=== PATIENT | male | born 1980 | race Hispanic/Latino ===

== ENCOUNTER 2019-12-24 09:28 | Inpatient (IN) | payer OTHER ==
[~2019-12-24] VITALS: Ht 172.7 cm; Wt 125.0 kg
[~2019-12-24 09:28] MED LIST: AEC81 PO; ATOR40TA69 PO; FISH1CAP50 PO; GEMF600T5 PO; INSNOV IVP; INSU100V12 SQ; LISI40TA4 PO; METF-445 PO; NIAC500T22 PO
[2019-12-24 10:22] LABS: APPEARANCE,URINE Clear (CLEAR); BILIRUBIN,URINE Negative (NEGATIVE); COLOR,URINE Yellow (YELLOW); GLUCOSE, URINE (UA) >=1000 mg/dL (NEGATIVE); KETONES,URINE Negative (NEGATIVE); LEUKOCYTE ESTERASE ,URINE Negative (NEGATIVE); NITRATE,URINE Negative (NEGATIVE); OCCULT BLOOD,URINE Moderate (NEGATIVE); PH,URINE 5.5 (5.0-8.0); PROTEIN,URINE >=1000 mg/dL (NEGATIVE); UROBILINOGEN,URINE 0.2 mg/dL (0.2-1.0)
[2019-12-24 10:56] LABS: BASOPHILS % (AUTO) 0.6 % (0.0-5.0); EOSINOPHILS % (AUTO) 2.1 % (0.0-8.0); LYMPHOCYTES % (AUTO) 24.2 % (21.0-51.0); MEAN CORPUSCULAR HEMOGLOBIN 27.2 pg (27.0-33.0); MEAN CORPUSCULAR HGB CONC 33.4 g/dL (32.0-36.0); MEAN CORPUSCULAR VOLUME 81.4 fL (79-99); MONOCYTES % (AUTO) 5.6 % (3.0-13.0); PLATELET COUNT (AUTO) 176 K/uL (130-400); RED BLOOD CELL COUNT(AUTO) 4.67 MIL/uL (4.50-6.20); RED CELL DISTRIBUTION WIDTH 12.6 % (11.0-15.5); WHITE BLOOD COUNT (AUTO) 6.3 K/uL (4.8-10.8)
[2019-12-24 11:07] LABS: POTASSIUM 4.1 mmol/L (3.5-5.1)
[2019-12-24 11:19] LABS: ALBUMIN 1.6 g/dL (3.5-5.0); BILIRUBIN,TOTAL 0.2 mg/dL (0.2-1.0); CREATININE 1.5 mg/dL (0.5-1.5); TOTAL PROTEIN, SERUM 5.8 g/dL (6.0-8.3)
[2019-12-24 11:42] LABS: B-TYPE NATRIURETIC PEPTIDE 83 pg/mL (0-100)
[2019-12-24 11:50] LABS: INR 0.89 (0.85-1.15); PARTIAL THROMBOPLASTIN TIME 26.8 SEC (26.3-35.5); PROTHROMBIN TIME 9.4 SEC (9.6-11.6)
[2019-12-24 12:01] LABS: BACTERIA,URINE Rare /HPF (None Seen); WBC,URINE 0-1 /HPF (0-1); YEAST,URINE BUDDING Few /HPF (None Seen)
[2019-12-24 12:02] LABS: SQUAMOUS EPITHELIAL CELL,UR Rare /HPF (0-2)
[2019-12-24] MEDS ORDERED: INSULIN HUMULIN R 100 UNIT/ML 3ML ONE ×3 (12:21→20:22)
[2019-12-24] MEDS ORDERED: GLUCAGON 1MG KIT 1 MG ML IM PRN (14:45)
[2019-12-24] MEDS ORDERED: ACETAMINOPHEN 325 MG TAB PO PRN (14:45)
[2019-12-24] MEDS: CEFTRIAXONE SODIUM 1 GM IV SCH (14:45)
[2019-12-24] MEDS ORDERED: DEXTROSE 50%-WATER 50 ML DISP.SYRIN IV PRN (14:45)
[2019-12-24] MEDS ORDERED: ONDANSETRON HCL 4 MG/2 ML VIAL IV PRN (14:45)
[2019-12-24] MEDS ORDERED: LACTULOSE 20 GM/30 ML UDCUP PO PRN (14:45)
[2019-12-24 15:20] LABS: HEMOGLOBIN A1C 13.3 % (4.0-6.0)
[2019-12-24] MEDS ORDERED: CEFTRIAXONE SODIUM 1 GM ONE (16:40)
[2019-12-24] MEDS ORDERED: SODIUM CHLORIDE 0.9% 1000ML 1,000 ML IV ONE (16:40)
[2019-12-24] MEDS ORDERED: SODIUM CHLORIDE 0.9% 50 ML IV ONE (16:40)
[2019-12-24] MEDS ORDERED: HYDRALAZINE HCL 20 MG/ML VIAL ONE (17:16)
[2019-12-24] MEDS ORDERED: FAMOTIDINE 20MG TAB 20 MG TAB ONE (20:21)
[2019-12-24] MEDS ORDERED: ACETAMINOPHEN 325 MG TAB ONE (20:22)
[2019-12-24 21:06] LABS: BASOPHILS % (AUTO) 0.5 % (0.0-5.0); HEMATOCRIT 38.7 % (42-54); LYMPHOCYTES % (AUTO) 22.5 % (21.0-51.0); MEAN CORPUSCULAR HEMOGLOBIN 27.4 pg (27.0-33.0); MEAN CORPUSCULAR HGB CONC 33.3 g/dL (32.0-36.0); MEAN CORPUSCULAR VOLUME 82.2 fL (79-99); MONOCYTES % (AUTO) 5.3 % (3.0-13.0); NEUTROPHILS % (AUTO) 69.2 % (40.0-77.0); PLATELET COUNT (AUTO) 182 K/uL (130-400); RED BLOOD CELL COUNT(AUTO) 4.71 MIL/uL (4.50-6.20); RED CELL DISTRIBUTION WIDTH 12.6 % (11.0-15.5); WHITE BLOOD COUNT (AUTO) 6.6 K/uL (4.8-10.8)
[2019-12-24 21:24] LABS: ALANINE AMINOTRANSFERASE 21 U/L (12-78); ALBUMIN 1.6 g/dL (3.5-5.0); ASPARTATE AMINOTRANSFERASE 19 U/L (10-37); BILIRUBIN,TOTAL 0.3 mg/dL (0.2-1.0); TOTAL PROTEIN, SERUM 5.7 g/dL (6.0-8.3)
[2019-12-24 21:42] LABS: BILIRUBIN,DIRECT < 0.1 mg/dL (0.0-0.3)
[2019-12-25] MEDS ORDERED: ACETAMINOPHEN 325 MG TAB ONE (01:02)
[2019-12-25 05:55] LABS: CREATININE 1.5 mg/dL (0.5-1.5); POTASSIUM 4.3 mmol/L (3.5-5.1)
[2019-12-25] MEDS: METOPROLOL TARTRATE 25 MG TAB PO SCH ×2 (09:00→21:49)
[2019-12-25] MEDS: FAMOTIDINE/PF 20 MG/2 ML VIAL IV SCH ×2 (09:00→21:49)
[2019-12-25] MEDS: ENOXAPARIN SODIUM 30 MG/0.3 ML SQ SCH (09:00)
[2019-12-25] MEDS: PREGABALIN 25 MG CAP PO SCH ×2 (09:00→21:49)
[2019-12-25] MEDS: LISINOPRIL 10 MG TABLET PO SCH (09:00)
[2019-12-25] MEDS ORDERED: METOPROLOL TARTRATE 25 MG TAB ONE (09:53)
[2019-12-25] MEDS ORDERED: LISINOPRIL 5 MG TABLET ONE (09:53)
[2019-12-25] MEDS ORDERED: FAMOTIDINE 20MG TAB 20 MG TAB ONE (09:53)
--- NOTE | 2019-12-25 11:26 | NUR ---
INITIAL Patient lives with mother, Geraldine Branch, [phone]. No home services or DME. 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 He is able to complete ADL's independently and drives. PCP is Dr. Randy Oconnor at [facility]. Pharmacy is [facility]. DCP is home. Patient has no insurance or benefits. He is a [place] citizen and is presently employed. Patient was provided with community resources for post hospitalization follow up. Patient was also provided with Good RX card for prescriptions and educated on [employer] $4 medication program and [employer] $5 medication program. Patient is being assisted by [employer] for financial matters Addendum: 12/25/19 at 1130 by BRETT PEREZ Amended: Links added.
[2019-12-25] MEDS: INSULIN HUMULIN R 100 UNIT/ML 3ML SQ SCH ×3 (11:30→21:42)
[2019-12-25 12:42] VITALS: BP 162/94
--- NOTE | 2019-12-25 13:20 | NUR ---
DR. BIJAL MOON MD PAGED REGARDING CONSULT, AWAITING CALLBACK.
[2019-12-25] MEDS: ACETAMINOPHEN 325 MG TAB PO PRN (13:42)
[2019-12-25] MEDS: MORPHINE SULFATE 2 MG/ML 1ML SYG IVP PRN (14:59)
[2019-12-25 16:00] VITALS: BP_SYST 169; BP_SYST 171; BP_DIAS 101; BP_DIAS 102
[2019-12-25] MEDS: HYDRALAZINE HCL 20 MG/ML VIAL IV PRN (17:31)
[2019-12-25] MEDS: CEFTRIAXONE SODIUM 1 GM IV SCH (17:31)
[2019-12-25] MEDS: SODIUM CHLORIDE 0.9% 1000ML 1,000 ML IV SCH ×3 (17:48→21:49)
[2019-12-25 19:00] VITALS: BP 165/113
[2019-12-25] MEDS ORDERED: FLU VACC QS2019-20 36MOS UP/PF 60 MCG/0.5 ML ML IM ONE (21:15)
[2019-12-25] MEDS: INSULIN GLARGINE 100 UNITS/ML 10 ML VIAL SQ SCH (21:42)
[2019-12-25 23:00] VITALS: BP 117/65
[2019-12-26 03:00] VITALS: BP 133/78
[2019-12-26 05:59] LABS: BASOPHILS % (AUTO) 0.6 % (0.0-5.0); EOSINOPHILS % (AUTO) 2.3 % (0.0-8.0); HEMATOCRIT 34.6 % (42-54); MEAN CORPUSCULAR HEMOGLOBIN 27.6 pg (27.0-33.0); MEAN CORPUSCULAR HGB CONC 32.9 g/dL (32.0-36.0); MEAN CORPUSCULAR VOLUME 83.8 fL (79-99); MONOCYTES % (AUTO) 8.2 % (3.0-13.0); NEUTROPHILS % (AUTO) 63.5 % (40.0-77.0); PLATELET COUNT (AUTO) 181 K/uL (130-400); RED BLOOD CELL COUNT(AUTO) 4.13 MIL/uL (4.50-6.20); RED CELL DISTRIBUTION WIDTH 13.2 % (11.0-15.5); WHITE BLOOD COUNT (AUTO) 5.1 K/uL (4.8-10.8)
[2019-12-26 06:14] LABS: ALBUMIN 1.3 g/dL (3.5-5.0); BILIRUBIN,TOTAL 0.1 mg/dL (0.2-1.0); CREATININE 1.6 mg/dL (0.5-1.5); POTASSIUM 3.8 mmol/L (3.5-5.1); TOTAL PROTEIN, SERUM 4.7 g/dL (6.0-8.3)
[2019-12-26] MEDS: INSULIN HUMULIN R 100 UNIT/ML 3ML SQ SCH ×4 (06:38→22:18)
[2019-12-26] MEDS: INSULIN GLARGINE 100 UNITS/ML 10 ML VIAL SQ SCH ×2 (07:30→22:18)
[2019-12-26] MEDS: SODIUM CHLORIDE 0.9% 1000ML 1,000 ML IV SCH ×2 (07:46→22:14)
[2019-12-26 08:00] VITALS: BP 153/94
[2019-12-26] MEDS: PREGABALIN 25 MG CAP PO SCH ×2 (10:14→22:15)
[2019-12-26] MEDS: FAMOTIDINE/PF 20 MG/2 ML VIAL IV SCH ×2 (10:15→22:15)
[2019-12-26] MEDS: LISINOPRIL 10 MG TABLET PO SCH (10:15)
[2019-12-26] MEDS: METOPROLOL TARTRATE 25 MG TAB PO SCH ×2 (10:15→22:15)
[2019-12-26] MEDS: ENOXAPARIN SODIUM 30 MG/0.3 ML SQ SCH (10:16)
[2019-12-26 11:33] VITALS: BP 162/96
[2019-12-26 16:00] VITALS: BP 149/93
[2019-12-26] MEDS: CEFTRIAXONE SODIUM 1 GM IV SCH (16:32)
[2019-12-26 19:00] VITALS: BP 143/100
[2019-12-26 23:00] VITALS: BP 151/97
[2019-12-27] VITALS (7 sets, daily range): BP systolic 130–165; BP diastolic 79–106
[2019-12-27] MEDS: SODIUM CHLORIDE 0.9% 1000ML 1,000 ML IV SCH ×3 (02:32→22:12)
[2019-12-27] MEDS: ACETAMINOPHEN 325 MG TAB PO PRN (03:23)
[2019-12-27] MEDS: INSULIN HUMULIN R 100 UNIT/ML 3ML SQ SCH ×4 (06:15→21:00)
[2019-12-27] MEDS: INSULIN GLARGINE 100 UNITS/ML 10 ML VIAL SQ SCH (06:19)
[2019-12-27 06:50] LABS: BASOPHILS % (AUTO) 0.5 % (0.0-5.0); EOSINOPHILS % (AUTO) 3.4 % (0.0-8.0); HEMATOCRIT 35.7 % (42-54); LYMPHOCYTES % (AUTO) 34.9 % (21.0-51.0); MEAN CORPUSCULAR HEMOGLOBIN 27.5 pg (27.0-33.0); MEAN CORPUSCULAR HGB CONC 32.2 g/dL (32.0-36.0); MEAN CORPUSCULAR VOLUME 85.4 fL (79-99); MONOCYTES % (AUTO) 8.7 % (3.0-13.0); NEUTROPHILS % (AUTO) 52.3 % (40.0-77.0); PLATELET COUNT (AUTO) 165 K/uL (130-400); RED BLOOD CELL COUNT(AUTO) 4.18 MIL/uL (4.50-6.20); RED CELL DISTRIBUTION WIDTH 13.2 % (11.0-15.5); WHITE BLOOD COUNT (AUTO) 4.4 K/uL (4.8-10.8)
[2019-12-27 07:05] LABS: ALBUMIN 1.4 g/dL (3.5-5.0); BILIRUBIN,TOTAL 0.1 mg/dL (0.2-1.0); CREATININE 1.6 mg/dL (0.5-1.5); POTASSIUM 4.2 mmol/L (3.5-5.1); TOTAL PROTEIN, SERUM 4.9 g/dL (6.0-8.3)
[2019-12-27] MEDS: METOPROLOL TARTRATE 25 MG TAB PO SCH ×2 (09:39→22:12)
[2019-12-27] MEDS: FAMOTIDINE/PF 20 MG/2 ML VIAL IV SCH ×2 (09:40→22:12)
[2019-12-27] MEDS: LISINOPRIL 10 MG TABLET PO SCH (09:40)
[2019-12-27] MEDS: PREGABALIN 25 MG CAP PO SCH ×2 (09:40→22:12)
[2019-12-27] MEDS: ENOXAPARIN SODIUM 30 MG/0.3 ML SQ SCH (09:41)
[2019-12-27] MEDS: HYDRALAZINE HCL 20 MG/ML VIAL IV PRN ×2 (12:19→23:13)
[2019-12-27] MEDS: MORPHINE SULFATE 2 MG/ML 1ML SYG IVP PRN ×2 (12:58→22:15)
[2019-12-27] MEDS ORDERED: INSULIN HUMULIN 70/30 100 UNIT/ML 3ML SQ SCH (17:00)
[2019-12-27] MEDS: CEFTRIAXONE SODIUM 1 GM IV SCH (17:51)
[2019-12-28 03:00] VITALS: BP 122/63
[2019-12-28] MEDS: INSULIN HUMULIN R 100 UNIT/ML 3ML SQ SCH ×3 (06:36→16:30)
[2019-12-28 07:06] LABS: BASOPHILS % (AUTO) 0.6 % (0.0-5.0); EOSINOPHILS % (AUTO) 1.9 % (0.0-8.0); HEMATOCRIT 39.5 % (42-54); LYMPHOCYTES % (AUTO) 26.3 % (21.0-51.0); MEAN CORPUSCULAR HEMOGLOBIN 27.3 pg (27.0-33.0); MEAN CORPUSCULAR HGB CONC 31.9 g/dL (32.0-36.0); MEAN CORPUSCULAR VOLUME 85.7 fL (79-99); MONOCYTES % (AUTO) 5.5 % (3.0-13.0); NEUTROPHILS % (AUTO) 65.4 % (40.0-77.0); PLATELET COUNT (AUTO) 211 K/uL (130-400); RED BLOOD CELL COUNT(AUTO) 4.61 MIL/uL (4.50-6.20); WHITE BLOOD COUNT (AUTO) 6.4 K/uL (4.8-10.8)
[2019-12-28 07:22] LABS: ALBUMIN 1.5 g/dL (3.5-5.0); BILIRUBIN,TOTAL 0.1 mg/dL (0.2-1.0); CREATININE 1.5 mg/dL (0.5-1.5); POTASSIUM 4.2 mmol/L (3.5-5.1); TOTAL PROTEIN, SERUM 5.4 g/dL (6.0-8.3)
[2019-12-28 07:30] VITALS: BP 171/97
[2019-12-28] MEDS ORDERED: INSULIN HUMULIN 70/30 100 UNIT/ML 3ML SQ SCH (07:30)
[2019-12-28] MEDS ORDERED: LISINOPRIL 20 MG TABLET PO SCH (09:00)
[2019-12-28] MEDS: SODIUM CHLORIDE 0.9% 1000ML 1,000 ML IV SCH (09:03)
[2019-12-28] MEDS: METOPROLOL TARTRATE 25 MG TAB PO SCH (09:04)
[2019-12-28] MEDS: FAMOTIDINE/PF 20 MG/2 ML VIAL IV SCH (09:05)
[2019-12-28] MEDS: PREGABALIN 25 MG CAP PO SCH (09:05)
[2019-12-28] MEDS: ENOXAPARIN SODIUM 30 MG/0.3 ML SQ SCH (09:07)
[2019-12-28] MEDS ORDERED: INSU10VI3 SQ ×2 (10:08)
[2019-12-28 11:12] VITALS: BP 143/96
[2019-12-28] MEDS: CEFTRIAXONE SODIUM 1 GM IV SCH (14:23)
[2019-12-28] MEDS ORDERED: LISI20TA PO (15:51)
[2019-12-28] MEDS ORDERED: PREG50 PO (15:51)
[2019-12-28] MEDS ORDERED: METO25TA6 PO (15:51)
--- NOTE | 2019-12-28 16:06 | NUR ---
NUTRITION EDUCATION COMPLETED LABS REVIEWED (A1C 13.3, TG 568, CHOL 308, LDL 110). RD PROVIDED DIABETES, HEART HEALTHY AND MEDITERRANEAN DIET AND NUTRITION EDUCATION. ALL QUESTIONS WERE ANSWERED AND PT VERBALIZED UNDERSTANDING. LAB VALUE TARGET GOALS WERE ESTABLISHED WITH PT. EDUCATION MATERIALS WERE PROVIDED IN [place]. Addendum: 12/28/19 at [address] Amended: Links added.
[2019-12-28 16:21] VITALS: BP 152/99
--- NOTE | 2019-12-28 19:00 | NUR ---
Discharge instructions provided with pt and parents in room. Emphasis on dx uncontrolled htn, dm2 with neuropathy, s/s to monitor for, when to seek emergency care vs dial 911. Pt is to follow up with Dr. Oconnor (PCP) in 3-5 days, and Dr. Royal (Podiatry) in 1 week. Staff unable to schedule appts as office are currently closed, so pt understands he must call to make appts in am. Written rx for lyrica, novolog 70/30, metoprolol, prinivil, given to pt. Discussed purpose, route, frequency of treatment, as well as side effects and adverse effects, bridgette. hypoglycemia and hypotension. Pt encouraged to monitor glucose and blood pressures and keep a record to report to md on follow up visits. PIV removed from rt wrist, dressed with sterile 2x2 and band aid after hemostasis achieved. Pt escorted to [facility] for transport home via private vehicle. Pt in stable condition at time of discharge.
== END 2019-12-28 19:15 | disposition home or self-care (01) | DRG 556 ==
LOC: EDH 09:28 → EDHIP 14:32 → 3DH 12-25 11:41
PROVIDERS: ADMIT Family Medicine; ATTEND Family Medicine
DX: M79.89 Other specified soft tissue disorders (principal); M62.82 Rhabdomyolysis; E44.0 Moderate protein-calorie malnutrition; N39.0 Urinary tract infection, site not specified; Z68.41 Body mass index [BMI] 40.0-44.9, adult; E66.01 Morbid (severe) obesity due to excess calories; E11.40 Type 2 diabetes mellitus with diabetic neuropathy, unspecified; E78.5 Hyperlipidemia, unspecified; Z91.14 Patient's other noncompliance with medication regimen; Z23 Encounter for immunization; Z79.4 Long term (current) use of insulin; I10 Essential (primary) hypertension
CPT/HCPCS: 36415; 71046; 73620; 73630; 76705; 80048; 80053; 80061; 80076; 81001; 82550; 82948; 83036; 83880; 84484; 85025; 85610; 85730; 87088; 93005; 93925; 93970; G0378; J0360; J0696; J1650; J1815; J3490; J7030; Q2035

== ENCOUNTER 2020-01-05 17:28 | Inpatient (IN) | payer OTHER ==
[~2020-01-05] VITALS: Ht 172.7 cm; Wt 114.1 kg
[~2020-01-05 17:28] MED LIST changes: -AEC81 PO; -ATOR40TA69 PO; -FISH1CAP50 PO; -GEMF600T5 PO; -INSNOV IVP; -INSU100V12 SQ; +INSU10VI3 SQ; +LISI20TA PO; -LISI40TA4 PO; -METF-445 PO; +METO25TA6 PO; -NIAC500T22 PO; +PREG50 PO
[2020-01-05 18:26] LABS: BASOPHILS % (AUTO) 0.4 % (0.0-5.0); EOSINOPHILS % (AUTO) 3.6 % (0.0-8.0); HEMATOCRIT 29.9 % (42-54); LYMPHOCYTES % (AUTO) 19.3 % (21.0-51.0); MEAN CORPUSCULAR HEMOGLOBIN 27.7 pg (27.0-33.0); MEAN CORPUSCULAR HGB CONC 31.4 g/dL (32.0-36.0); MEAN CORPUSCULAR VOLUME 88.2 fL (79-99); MONOCYTES % (AUTO) 7.5 % (3.0-13.0); NEUTROPHILS % (AUTO) 68.9 % (40.0-77.0); PLATELET COUNT (AUTO) 203 K/uL (130-400); RED BLOOD CELL COUNT(AUTO) 3.39 MIL/uL (4.50-6.20); RED CELL DISTRIBUTION WIDTH 12.9 % (11.0-15.5); WHITE BLOOD COUNT (AUTO) 7.2 K/uL (4.8-10.8)
[2020-01-05] MEDS ORDERED: FUROSEMIDE 10 MG/ML 4ML VIAL ONE (18:35)
[2020-01-05] MEDS ORDERED: CEFTRIAXONE SODIUM 2 GM VIAL ONE (18:35)
[2020-01-05 18:38] LABS: INR 0.95 (0.85-1.15)
[2020-01-05 18:49] LABS: CARBON DIOXIDE 24 mmol/L (21-32); CHLORIDE 108 mmol/L (101-111); GLOMERULAR FILTR. RATE CALC 40 mL/min (>60); GLUCOSE,RANDOM 194 mg/dL (70-105); POTASSIUM 4.9 mmol/L (3.5-5.1); SODIUM SERUM 139 mmol/L (136-145); UREA NITROGEN, BLOOD 26 mg/dL (7-18)
[2020-01-05 18:53] LABS: ALANINE AMINOTRANSFERASE 23 U/L (12-78); ALBUMIN 1.6 g/dL (3.5-5.0); ASPARTATE AMINOTRANSFERASE 18 U/L (10-37); BILIRUBIN,DIRECT < 0.1 mg/dL (0.0-0.3); BILIRUBIN,TOTAL 0.2 mg/dL (0.2-1.0); CREATINE KINASE, TOTAL 381 U/L (21-232); LIPASE 70 U/L (114-286); TOTAL PROTEIN, SERUM 5.6 g/dL (6.0-8.3)
[2020-01-05 19:00] LABS: APPEARANCE,URINE Cloudy (CLEAR); BILIRUBIN,URINE Negative (NEGATIVE); COLOR,URINE Yellow (YELLOW); GLUCOSE, URINE (UA) TRACE mg/dL (NEGATIVE); KETONES,URINE Negative (NEGATIVE); LEUKOCYTE ESTERASE ,URINE Negative (NEGATIVE); NITRATE,URINE Negative (NEGATIVE); OCCULT BLOOD,URINE Moderate (NEGATIVE); PROTEIN,URINE >=1000 mg/dL (NEGATIVE); UROBILINOGEN,URINE 0.2 mg/dL (0.2-1.0)
[2020-01-05 19:24] LABS: AMORPHOUS SEDIMENT,UR Few /LPF (None Seen); BACTERIA,URINE Few /HPF (None Seen); MUCUS,URINE Rare LPF (None Seen); RBC,URINE 0-1 /HPF (0-1); SQUAMOUS EPITHELIAL CELL,UR None Seen /HPF (0-2); WBC,URINE 0-1 /HPF (0-1)
[2020-01-05] MEDS ORDERED: VANCOMYCIN 1GM+NS 250ML 500 ML IV ONE (19:38)
[2020-01-05 19:50] LABS: B-TYPE NATRIURETIC PEPTIDE 219 pg/mL (0-100)
[2020-01-05] MEDS ORDERED: DEXTROSE 50%-WATER 50 ML DISP.SYRIN IV PRN (20:45)
[2020-01-05] MEDS ORDERED: GLUCAGON 1MG KIT 1 MG ML IM PRN (20:45)
[2020-01-05] MEDS ORDERED: METHYLPREDNISOLONE SOD SUCC 40MG/ML 1ML IVP SCH (21:00)
[2020-01-05] MEDS ORDERED: INSULIN HUMULIN R 100 UNIT/ML 3ML SQ SCH (21:00)
[2020-01-05] MEDS ORDERED: FAMOTIDINE 20MG TAB 20 MG TAB PO SCH (21:00)
[2020-01-05] MEDS: AZITHROMYCIN 500MG+NS 250ML 250 ML IV SCH (21:00)
[2020-01-05] MEDS ORDERED: IPRATROPIUM/ALBUTEROL SULFATE 3 ML SOLUTION IH ONE (22:55)
[2020-01-05] MEDS: IPRATROPIUM/ALBUTEROL SULFATE 3 ML SOLUTION IH SCH (23:02)
[2020-01-05] MEDS ORDERED: FAMOTIDINE 20MG TAB 20 MG TAB ONE (23:14)
[2020-01-05] MEDS ORDERED: METHYLPREDNISOLONE SOD SUCC 40MG/ML 1ML ONE (23:15)
[2020-01-05] MEDS ORDERED: HEPARIN SODIUM 5000UNIT/ML 1ML VIAL ONE (23:15)
[2020-01-05] MEDS ORDERED: AZITHROMYCIN 500MG+NS 250ML 250 ML IV ONE (23:15)
[2020-01-06] MEDS ORDERED: IPRATROPIUM/ALBUTEROL SULFATE 3 ML SOLUTION IH ONE ×2 (05:06→11:01)
[2020-01-06] MEDS: IPRATROPIUM/ALBUTEROL SULFATE 3 ML SOLUTION IH SCH ×3 (05:08→19:33)
[2020-01-06 05:45] LABS: BASOPHILS % (AUTO) 0.3 % (0.0-5.0); EOSINOPHILS % (AUTO) 3.6 % (0.0-8.0); HEMATOCRIT 36.9 % (42-54); LYMPHOCYTES % (AUTO) 10.2 % (21.0-51.0); MEAN CORPUSCULAR HEMOGLOBIN 27.1 pg (27.0-33.0); MEAN CORPUSCULAR HGB CONC 30.4 g/dL (32.0-36.0); MEAN CORPUSCULAR VOLUME 89.3 fL (79-99); MONOCYTES % (AUTO) 1.7 % (3.0-13.0); NEUTROPHILS % (AUTO) 83.9 % (40.0-77.0); PLATELET COUNT (AUTO) 202 K/uL (130-400); RED BLOOD CELL COUNT(AUTO) 4.13 MIL/uL (4.50-6.20); RED CELL DISTRIBUTION WIDTH 13.2 % (11.0-15.5); WHITE BLOOD COUNT (AUTO) 5.8 K/uL (4.8-10.8)
[2020-01-06] MEDS ORDERED: CEFTRIAXONE SODIUM 1 GM ONE (05:50)
[2020-01-06] MEDS ORDERED: ACETAMINOPHEN 325 MG TAB ONE (05:50)
[2020-01-06] MEDS: CEFTRIAXONE SODIUM 1 GM IVP SCH ×2 (06:00→18:19)
[2020-01-06 06:06] LABS: B-TYPE NATRIURETIC PEPTIDE 172 pg/mL (0-100)
[2020-01-06 06:08] LABS: ALBUMIN 1.7 g/dL (3.5-5.0); BILIRUBIN,TOTAL 0.1 mg/dL (0.2-1.0); POTASSIUM 5.6 mmol/L (3.5-5.1); TOTAL PROTEIN, SERUM 6.5 g/dL (6.0-8.3)
[2020-01-06 06:15] LABS: % IRON SATURATION 6.7 % (30-44)
[2020-01-06 06:25] LABS: HEMOGLOBIN A1C 13.2 % (4.0-6.0)
[2020-01-06] MEDS ORDERED: FAMOTIDINE 20MG TAB 20 MG TAB ONE (07:16)
[2020-01-06] MEDS ORDERED: METHYLPREDNISOLONE SOD SUCC 40MG/ML 1ML ONE (07:16)
[2020-01-06] MEDS ORDERED: HEPARIN SODIUM 5000UNIT/ML 1ML VIAL ONE (07:16)
[2020-01-06] MEDS ORDERED: INSULIN HUMULIN R 100 UNIT/ML 3ML ONE ×2 (07:18→11:56)
[2020-01-06] MEDS: FAMOTIDINE 20MG TAB 20 MG TAB PO SCH ×2 (09:00→21:35)
[2020-01-06] MEDS: FUROSEMIDE 10 MG/ML 2ML VIAL IV SCH ×2 (09:15→21:35)
[2020-01-06] MEDS: HEPARIN SODIUM 5000UNIT/ML 1ML VIAL SQ SCH ×2 (09:30→21:44)
[2020-01-06] MEDS ORDERED: FUROSEMIDE 10 MG/ML 2ML VIAL ONE (10:01)
[2020-01-06 10:26] LABS: PROTEIN,URINE RANDOM 659.6 mg/dL (0-11.9)
--- NOTE | 2020-01-06 10:27 | NUR ---
INITIAL Patient lives with parents. Emergency contact is mother, Geraldine Branch, [phone]. No home services or DME. 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 He is able to complete ADL's independently and drives. PCP is Dr. Randy Oconnor at [facility]. Pharmacy is [facility]. Patient was recently hospitalized from 12/24/2019-12/28/2019. DCP is home. Patient has no insurance or benefits. He is a [place] citizen and is presently employed. Patient was provided with community resources for post hospitalization follow up during last admission and stated he did not need another one. Patient was also provided with Good RX card for prescriptions and educated on [employer] $4 medication program and [employer] $5 medication program during last admission. Patient is being assisted by [employer] for financial matters Addendum: 01/06/20 at 1029 by BRETT PEREZ SS Amended: Links added.
[2020-01-06] MEDS ORDERED: SODIUM POLYSTYRENE SULFONATE 15 GM/60 ML ML PO SCH (13:45)
[2020-01-06] MEDS ORDERED: SODIUM POLYSTYRENE SULFONATE 15 GM/60 ML ML ONE (14:26)
[2020-01-06] MEDS: INSULIN LISPRO 100 UNIT/ML 3ML SQ SCH ×3 (16:30→21:43)
[2020-01-06 16:38] VITALS: BP 187/115
[2020-01-06 18:34] LABS: CRP QUANTITATIVE 51.1 mg/L (0.00-9.0)
[2020-01-06] MEDS: SODIUM CHLORIDE 3% FOR INHALATION 4 ML/AMP VIAL.NEB IH SCH (19:33)
[2020-01-06 20:16] LABS: CREATININE 2.2 mg/dL (0.5-1.5); POTASSIUM 5.1 mmol/L (3.5-5.1)
[2020-01-06 20:21] VITALS: BP 149/106
[2020-01-06] MEDS: AZITHROMYCIN 500MG+NS 250ML 250 ML IV SCH (21:35)
[2020-01-06] MEDS: LISINOPRIL 5 MG TABLET PO SCH (21:35)
[2020-01-06 21:37] VITALS: BP 101/55
[2020-01-06] MEDS: INSULIN GLARGINE 100 UNITS/ML 10 ML VIAL SQ SCH (21:42)
[2020-01-07] VITALS: BP 164/90
[2020-01-07] MEDS: IPRATROPIUM/ALBUTEROL SULFATE 3 ML SOLUTION IH SCH ×4 (00:05→18:32)
[2020-01-07 04:21] VITALS: BP 138/83
[2020-01-07 05:45] LABS: BASOPHILS % (AUTO) 0.5 % (0.0-5.0); EOSINOPHILS % (AUTO) 1.5 % (0.0-8.0); HEMATOCRIT 33.6 % (42-54); LYMPHOCYTES % (AUTO) 17.4 % (21.0-51.0); MEAN CORPUSCULAR HEMOGLOBIN 27.4 pg (27.0-33.0); MEAN CORPUSCULAR HGB CONC 31.5 g/dL (32.0-36.0); MEAN CORPUSCULAR VOLUME 86.8 fL (79-99); MONOCYTES % (AUTO) 7.4 % (3.0-13.0); NEUTROPHILS % (AUTO) 72.7 % (40.0-77.0); PLATELET COUNT (AUTO) 213 K/uL (130-400); RED BLOOD CELL COUNT(AUTO) 3.87 MIL/uL (4.50-6.20); RED CELL DISTRIBUTION WIDTH 13.1 % (11.0-15.5); WHITE BLOOD COUNT (AUTO) 8.1 K/uL (4.8-10.8)
[2020-01-07] MEDS: CEFTRIAXONE SODIUM 1 GM IVP SCH ×2 (05:57→17:47)
[2020-01-07 06:02] LABS: CREATININE 2.1 mg/dL (0.5-1.5); MAGNESIUM 1.5 mg/dL (1.80-2.40); PHOSPHORUS 3.9 mg/dL (2.5-4.9); POTASSIUM 4.2 mmol/L (3.5-5.1)
[2020-01-07 06:15] LABS: % IRON SATURATION 14.9 % (30-44)
[2020-01-07] MEDS: SODIUM CHLORIDE 3% FOR INHALATION 4 ML/AMP VIAL.NEB IH SCH ×3 (06:36→18:32)
[2020-01-07] MEDS: INSULIN LISPRO 100 UNIT/ML 3ML SQ SCH ×7 (07:19→21:00)
[2020-01-07 08:18] VITALS: BP 139/77
[2020-01-07] MEDS: FOLIC ACID/VITAMIN B COMP W-C 1 CAP TAB PO SCH (09:26)
[2020-01-07] MEDS: FAMOTIDINE 20MG TAB 20 MG TAB PO SCH ×2 (09:26→19:52)
[2020-01-07] MEDS: LISINOPRIL 5 MG TABLET PO SCH ×2 (09:27→19:52)
[2020-01-07] MEDS: FUROSEMIDE 10 MG/ML 2ML VIAL IV SCH ×2 (09:27→19:52)
[2020-01-07] MEDS: HEPARIN SODIUM 5000UNIT/ML 1ML VIAL SQ SCH ×2 (09:28→21:16)
[2020-01-07 12:13] VITALS: BP 172/98
[2020-01-07] MEDS ORDERED: COMPOUND IV MISC 1 EACH IVSOLN MISC PRN (13:30)
[2020-01-07] MEDS: MAGNESIUM 2GM PREMIX 50ML 50 ML IV SCH (15:03)
--- NOTE | 2020-01-07 15:18 | NUR ---
RD Notification Pt admitted for CAP. Pt Hx of DM, Neuropathy, HLD, HTN. Notification for dietary noncompliance received. RD provide nutrition education today to Pt, Pt refused diabetes education but was receptive to fat restricted, high fiber nutrition education. Recommend to modify to 60CCD, no concentrated sweets. RD to continue to monitor. Please notify RD as additional nutrition concern arise. Thank you. Addendum: 01/07/20 at [address] Amended: Links added.
--- NOTE | 2020-01-07 15:23 | NUR ---
NUTRITION EDUCATION RD provided Fat Restricted nutrition education. Pt however refused Diabetes nutrition education. RD to follow up with nutrition reinforcement. Addendum: 01/07/20 at [address] Amended: Links added.
[2020-01-07 16:34] VITALS: BP 156/101
[2020-01-07] MEDS: AZITHROMYCIN 500MG+NS 250ML 250 ML IV SCH (19:55)
--- NOTE | 2020-01-07 20:15 | NUR ---
family/parents with questions parents at bedside have questions about son(Patient) renal and health status. son gave permission for discussion with parents. updated parents and explained medications and plan of care. educated on importance of adhering to dietary and medication regimen and the detrimental effects on the body due to non-compliance. parents understand and verbalize understanding
[2020-01-07 20:18] VITALS: BP 182/106
[2020-01-07] MEDS: INSULIN GLARGINE 100 UNITS/ML 10 ML VIAL SQ SCH (21:00)
--- NOTE | 2020-01-07 21:00 | NUR ---
hypoglycemia hs glucose check of 61, sandwich tray given. followed up with patient post meal and he stated that he still feels as if his sugar is low and feels shaky. gave patient an orange juice.
[2020-01-08] VITALS (7 sets, daily range): BP systolic 140–183; BP diastolic 85–106
[2020-01-08] MEDS: SODIUM CHLORIDE 3% FOR INHALATION 4 ML/AMP VIAL.NEB IH SCH ×5 (00:22→23:13)
[2020-01-08] MEDS: IPRATROPIUM/ALBUTEROL SULFATE 3 ML SOLUTION IH SCH ×5 (00:22→23:13)
[2020-01-08 04:46] LABS: BASOPHILS % (AUTO) 0.6 % (0.0-5.0); EOSINOPHILS % (AUTO) 4.4 % (0.0-8.0); HEMATOCRIT 31.7 % (42-54); LYMPHOCYTES % (AUTO) 35.2 % (21.0-51.0); MEAN CORPUSCULAR HGB CONC 31.2 g/dL (32.0-36.0); MEAN CORPUSCULAR VOLUME 86.6 fL (79-99); MONOCYTES % (AUTO) 7.6 % (3.0-13.0); PLATELET COUNT (AUTO) 203 K/uL (130-400); RED BLOOD CELL COUNT(AUTO) 3.66 MIL/uL (4.50-6.20); RED CELL DISTRIBUTION WIDTH 12.7 % (11.0-15.5); WHITE BLOOD COUNT (AUTO) 5.3 K/uL (4.8-10.8)
[2020-01-08 04:57] LABS: CREATININE 1.7 mg/dL (0.5-1.5); MAGNESIUM 1.5 mg/dL (1.80-2.40); PHOSPHORUS 4.2 mg/dL (2.5-4.9); POTASSIUM 4.6 mmol/L (3.5-5.1)
[2020-01-08 04:59] LABS: B-TYPE NATRIURETIC PEPTIDE 83 pg/mL (0-100)
[2020-01-08] MEDS: CEFTRIAXONE SODIUM 1 GM IVP SCH ×2 (06:14→17:58)
[2020-01-08] MEDS: MAGNESIUM 2GM PREMIX 50ML 50 ML IV SCH (06:15)
[2020-01-08] MEDS: INSULIN LISPRO 100 UNIT/ML 3ML SQ SCH ×7 (06:31→20:46)
[2020-01-08] MEDS: FAMOTIDINE 20MG TAB 20 MG TAB PO SCH ×2 (09:20→20:40)
[2020-01-08] MEDS: FUROSEMIDE 10 MG/ML 2ML VIAL IV SCH (09:20)
[2020-01-08] MEDS: LISINOPRIL 5 MG TABLET PO SCH (09:21)
[2020-01-08] MEDS: FOLIC ACID/VITAMIN B COMP W-C 1 CAP TAB PO SCH (09:21)
[2020-01-08] MEDS: IRON SUCROSE COMPLEX 100 MG in SODIUM CHLORIDE 0.9% 50 ML IV SCH (09:22)
[2020-01-08] MEDS: HEPARIN SODIUM 5000UNIT/ML 1ML VIAL SQ SCH ×2 (09:39→20:43)
[2020-01-08] MEDS: HYDRALAZINE HCL 20 MG/ML VIAL IV PRN (16:02)
[2020-01-08] MEDS: FUROSEMIDE 10 MG/ML 4ML VIAL IV SCH (20:39)
[2020-01-08] MEDS: AZITHROMYCIN 500MG+NS 250ML 250 ML IV SCH (20:40)
[2020-01-08] MEDS: INSULIN GLARGINE 100 UNITS/ML 10 ML VIAL SQ SCH (20:44)
[2020-01-09] VITALS (15 sets, daily range): BP systolic 147–188; BP diastolic 84–107
[2020-01-09] MEDS: CEFTRIAXONE SODIUM 1 GM IVP SCH (05:58)
[2020-01-09] MEDS: FUROSEMIDE 10 MG/ML 4ML VIAL IV SCH ×3 (06:15→22:29)
[2020-01-09] MEDS: INSULIN LISPRO 100 UNIT/ML 3ML SQ SCH ×6 (06:29→21:00)
[2020-01-09] MEDS: SODIUM CHLORIDE 3% FOR INHALATION 4 ML/AMP VIAL.NEB IH SCH ×4 (06:58→23:27)
[2020-01-09] MEDS: IPRATROPIUM/ALBUTEROL SULFATE 3 ML SOLUTION IH SCH ×4 (06:58→23:27)
[2020-01-09] MEDS: LISINOPRIL 10 MG TABLET PO SCH ×2 (07:37→12:29)
[2020-01-09] MEDS: FOLIC ACID/VITAMIN B COMP W-C 1 CAP TAB PO SCH (07:37)
[2020-01-09] MEDS: FAMOTIDINE 20MG TAB 20 MG TAB PO SCH ×3 (07:37→22:29)
[2020-01-09] MEDS: IRON SUCROSE COMPLEX 100 MG in SODIUM CHLORIDE 0.9% 50 ML IV SCH ×2 (09:00→12:28)
[2020-01-09] MEDS: HEPARIN SODIUM 5000UNIT/ML 1ML VIAL SQ SCH ×2 (09:30→22:35)
--- NOTE | 2020-01-09 09:41 | NUR ---
PT. FOR BRONCHOSCOPY AT 1000 THIS AM PER Meeta CHRISTIE RN. CONTINUES NPO.
[2020-01-09] MEDS ORDERED: LIDOCAINE HCL/PF 4% 40 MG/1 ML 5ML AMP IH SCH (09:45)
--- NOTE | 2020-01-09 09:47 | NUR ---
TO BRONCHOSCOPY VIA BED ACCOMPANIED BY Meeta CHRISTIE RN.
[2020-01-09] MEDS ORDERED: PROPOFOL 10 MG/ML 20ML VIAL IV ONE (09:54)
[2020-01-09] MEDS ORDERED: SUCCINYLCHOLINE 200MG/10ML SYR ONE (09:55)
[2020-01-09] MEDS ORDERED: MEPERIDINE-PF 50 MG/ML SYG ONE (09:56)
[2020-01-09] MEDS ORDERED: LIDOCAINE HCL 1% 20 ML VIAL ONE (10:17)
--- NOTE | 2020-01-09 11:30 | NUR ---
RETURNED TO ROOM VIA BED ACCOMPANIED BY Katarina CLEMENTE RN. PT. AAOX3, RESP.'S EVEN AND UNLABORED. DENIES ANY C/O AT THIS TIME. CALL LIGHT WITHIN REACH, VERBALIZED ABILITY TO USE. BED LOW, SIDE RAILS UP X2.
[2020-01-09] MEDS: ACETAMINOPHEN 325 MG TAB PO PRN (12:30)
--- NOTE | 2020-01-09 12:41 | NUR ---
DR. GWEN VARGAS IN ROOM SPEAKING WITH PT. AND PT.'S MOTHER AT BEDSIDE EXPLAINING BRONCHOSCOPY FINDINGS. QUESTIONS ANSWERED BY DR. VARGAS.
[2020-01-09] MEDS: HYDRALAZINE HCL 20 MG/ML VIAL IV PRN (15:20)
[2020-01-09 16:39] LABS: APPEARANCE BODY FLUID CLEAR (CLEAR); BODY FLUID RBC 53 /cu. mm.; BODY FLUID WBC 20 /cu. mm.; COLOR,BODY FLUID COLORLESS (LT YELLOW); SPECIMENTYPE,BODY FLUID LAVAGE; TOTAL VOLUME,BODY FLUID 10 mL
[2020-01-09 16:41] LABS: APPEARANCE BODY FLUID CLEAR (CLEAR); COLOR,BODY FLUID COLORLESS (LT YELLOW); SPECIMENTYPE,BODY FLUID L; TOTAL VOLUME,BODY FLUID 12 mL
[2020-01-09 16:42] LABS: BODY FLUID RBC 84 /cu. mm.; BODY FLUID WBC 16 /cu. mm.
--- NOTE | 2020-01-09 16:49 | NUR ---
PAGED DR. SANDERS TO NOTIFY RE:PERSISTENT HTN, AWAITING RESPONSE.
[2020-01-09 16:56] LABS: BF LYMPHOCYTE 59 %
[2020-01-09 16:58] LABS: BF LYMPHOCYTE 67 %
--- NOTE | 2020-01-09 17:04 | NUR ---
RE-PAGED DR. SANDERS TO NOTIFY RE:PERSISTENT HTN DESPITE HYDRALAZINE ADMINISTERED. Addendum: 01/09/20 at 1705 by MARCO EDDY RN RN PAGED PER ANSWERING SERVICE.
[2020-01-09] MEDS: AMLODIPINE BESYLATE 5 MG TAB PO SCH (17:25)
[2020-01-10 02:51] VITALS: BP 140/76
[2020-01-10 03:27] LABS: MEAN CORPUSCULAR HGB CONC 31.4 g/dL (32.0-36.0); PLATELET COUNT (AUTO) 214 K/uL (130-400); RED BLOOD CELL COUNT(AUTO) 4.07 MIL/uL (4.50-6.20); RED CELL DISTRIBUTION WIDTH 12.4 % (11.0-15.5); WHITE BLOOD COUNT (AUTO) 4.9 K/uL (4.8-10.8)
[2020-01-10 03:39] LABS: CREATININE 1.5 mg/dL (0.5-1.5); MAGNESIUM 1.4 mg/dL (1.80-2.40); POTASSIUM 4.2 mmol/L (3.5-5.1)
[2020-01-10] MEDS: ACETAMINOPHEN 325 MG TAB PO PRN ×2 (03:50→13:02)
[2020-01-10 03:55] LABS: BAND NEUTROPHILS % (MANUAL) 4 % (0-2); LYMPHOCYTES % (MANUAL) 20 % (22-44); MAN.DIFF COMMENT-IMPRESSION MANUAL DIFFERENTIAL; MONOCYTES % (MANUAL) 12 % (2-9); PLATELET MORPHOLOGY COMMENT ADEQUATE; SEGMENTED NEUTROPHILS % 64 % (40-70)
[2020-01-10] MEDS ORDERED: HYDROXYZINE HCL 25 MG TABLET ONE (04:25)
[2020-01-10] MEDS: INSULIN LISPRO 100 UNIT/ML 3ML SQ SCH (06:03)
[2020-01-10] MEDS: MAGNESIUM 2GM PREMIX 50ML 50 ML IV SCH (06:46)
[2020-01-10] MEDS: IPRATROPIUM/ALBUTEROL SULFATE 3 ML SOLUTION IH SCH ×3 (06:57→18:28)
[2020-01-10] MEDS: SODIUM CHLORIDE 3% FOR INHALATION 4 ML/AMP VIAL.NEB IH SCH ×3 (06:57→18:27)
[2020-01-10 07:58] VITALS: BP 144/89
[2020-01-10] MEDS ORDERED: LEVOFLOXACIN 750 MG TABLET PO SCH (09:00)
[2020-01-10] MEDS: FAMOTIDINE 20MG TAB 20 MG TAB PO SCH ×2 (09:54→22:02)
[2020-01-10] MEDS: FOLIC ACID/VITAMIN B COMP W-C 1 CAP TAB PO SCH (09:54)
[2020-01-10] MEDS: IRON SUCROSE COMPLEX 100 MG in SODIUM CHLORIDE 0.9% 50 ML IV SCH (09:54)
[2020-01-10] MEDS: AMLODIPINE BESYLATE 5 MG TAB PO SCH (09:54)
[2020-01-10] MEDS: LISINOPRIL 10 MG TABLET PO SCH (09:54)
[2020-01-10] MEDS: FUROSEMIDE 10 MG/ML 4ML VIAL IV SCH ×2 (09:54→22:02)
[2020-01-10] MEDS: HEPARIN SODIUM 5000UNIT/ML 1ML VIAL SQ SCH ×2 (09:56→22:11)
[2020-01-10 11:49] VITALS: BP 140/88
--- NOTE | 2020-01-10 12:47 | NUR ---
DR. SANDERS IN ROOM SPEAKING WITH PT. DR. SANDERS INFORMED OF BP TREND, VERBALIZED UNDERSTANDING.
[2020-01-10] MEDS ORDERED: TRAMADOL /APAP 37.5MG/325MG TAB PO PRN (15:00)
[2020-01-10 15:42] VITALS: BP 144/94
--- NOTE | 2020-01-10 16:39 | NUR ---
DR. Tegan FIERRO IN ROOM SPEAKING WITH PT. RE:PLAN OF CARE; PT.'S FAMILY MEMBERS AT BEDSIDE.
[2020-01-10 19:33] VITALS: BP 151/96
--- NOTE | 2020-01-10 21:00 | NUR ---
24 HOUR URINE COLLECTION STARTED. ENDS AT 9PM 01/11/2020.
[2020-01-10] MEDS: HYDROXYZINE HCL 25 MG TABLET PO PRN (22:02)
[2020-01-10 23:08] VITALS: BP 156/96
[2020-01-11] MEDS: IPRATROPIUM/ALBUTEROL SULFATE 3 ML SOLUTION IH SCH ×5 (00:34→23:55)
[2020-01-11] MEDS: SODIUM CHLORIDE 3% FOR INHALATION 4 ML/AMP VIAL.NEB IH SCH ×4 (00:34→19:12)
[2020-01-11 04:12] VITALS: BP 138/86
[2020-01-11 04:56] LABS: CREATININE 1.8 mg/dL (0.5-1.5); MAGNESIUM 1.7 mg/dL (1.80-2.40); POTASSIUM 4.5 mmol/L (3.5-5.1)
[2020-01-11] MEDS: HYDROXYZINE HCL 25 MG TABLET PO PRN (05:49)
[2020-01-11] MEDS: MAGNESIUM 2GM PREMIX 50ML 50 ML IV SCH (06:39)
[2020-01-11] MEDS: INSULIN HUMULIN R 100 UNIT/ML 3ML SQ SCH ×4 (06:40→20:57)
[2020-01-11 08:10] VITALS: BP 160/100
[2020-01-11] MEDS: LISINOPRIL 20 MG TABLET PO SCH (11:49)
[2020-01-11] MEDS: FOLIC ACID/VITAMIN B COMP W-C 1 CAP TAB PO SCH (11:49)
[2020-01-11] MEDS: FUROSEMIDE 10 MG/ML 4ML VIAL IV SCH ×2 (11:49→20:49)
[2020-01-11] MEDS: IRON SUCROSE COMPLEX 100 MG in SODIUM CHLORIDE 0.9% 50 ML IV SCH (11:49)
[2020-01-11] MEDS: FAMOTIDINE 20MG TAB 20 MG TAB PO SCH ×2 (11:50→20:49)
[2020-01-11] MEDS: AMLODIPINE BESYLATE 5 MG TAB PO SCH (11:50)
[2020-01-11 11:51] VITALS: BP 136/96
[2020-01-11] MEDS: HEPARIN SODIUM 5000UNIT/ML 1ML VIAL SQ SCH ×2 (12:01→20:48)
[2020-01-11 16:00] VITALS: BP 157/100
[2020-01-11 19:00] VITALS: BP 142/90
[2020-01-11] MEDS: AMOXICILLIN/POTASSIUM CLAV 875-125 TABLET PO SCH (20:49)
[2020-01-11] MEDS ORDERED: INSULIN GLARGINE 100 UNITS/ML 10 ML VIAL SQ SCH (22:00)
[2020-01-11 23:00] VITALS: BP 139/97
[2020-01-12 04:00] VITALS: BP 135/81
[2020-01-12 05:28] LABS: BASOPHILS % (AUTO) 0.5 % (0.0-5.0); EOSINOPHILS % (AUTO) 4.4 % (0.0-8.0); HEMATOCRIT 33.1 % (42-54); LYMPHOCYTES % (AUTO) 24.4 % (21.0-51.0); MEAN CORPUSCULAR HEMOGLOBIN 27.7 pg (27.0-33.0); MEAN CORPUSCULAR HGB CONC 31.7 g/dL (32.0-36.0); MEAN CORPUSCULAR VOLUME 87.3 fL (79-99); MONOCYTES % (AUTO) 6.9 % (3.0-13.0); NEUTROPHILS % (AUTO) 63.6 % (40.0-77.0); PLATELET COUNT (AUTO) 188 K/uL (130-400); RED BLOOD CELL COUNT(AUTO) 3.79 MIL/uL (4.50-6.20); RED CELL DISTRIBUTION WIDTH 12.4 % (11.0-15.5); WHITE BLOOD COUNT (AUTO) 4.3 K/uL (4.8-10.8)
[2020-01-12] MEDS: INSULIN HUMULIN R 100 UNIT/ML 3ML SQ SCH ×4 (06:06→20:50)
[2020-01-12 06:09] LABS: B-TYPE NATRIURETIC PEPTIDE 31 pg/mL (0-100)
[2020-01-12 06:47] LABS: ALBUMIN 1.8 g/dL (3.5-5.0); MAGNESIUM 1.7 mg/dL (1.80-2.40); PHOSPHORUS 5.8 mg/dL (2.5-4.9); POTASSIUM 4.4 mmol/L (3.5-5.1)
[2020-01-12] MEDS: IPRATROPIUM/ALBUTEROL SULFATE 3 ML SOLUTION IH SCH ×4 (06:54→23:52)
[2020-01-12 07:13] LABS: HEPATITIS B CORE IGM Negative (Negative); HEPATITIS Bs ANTIGEN SCREEN P Negative (Negative)
[2020-01-12 08:29] VITALS: BP 154/96
[2020-01-12 08:48] LABS: COLLECTION PERIOD,URINE 24 HR; TOTAL VOLUME 24HRS,URINE 3000 mL; TPROTEIN TIMED,URINE 296 mg/dL; TPROTEIN U,24HR CALC 8880 mg/24HR (0-165)
[2020-01-12] MEDS: LISINOPRIL 20 MG TABLET PO SCH (08:59)
[2020-01-12] MEDS: METOPROLOL SUCCINATE 50 MG TAB.SR.24H PO SCH (08:59)
[2020-01-12] MEDS: AMOXICILLIN/POTASSIUM CLAV 875-125 TABLET PO SCH ×2 (08:59→23:16)
[2020-01-12] MEDS ORDERED: LINAGLIPTIN 5 MG TABLET PO SCH (09:00)
[2020-01-12] MEDS: FUROSEMIDE 40 MG TABLET PO SCH (09:00)
[2020-01-12] MEDS: AMLODIPINE BESYLATE 5 MG TAB PO SCH (09:00)
[2020-01-12] MEDS: FOLIC ACID/VITAMIN B COMP W-C 1 CAP TAB PO SCH (09:00)
[2020-01-12] MEDS: FAMOTIDINE 20MG TAB 20 MG TAB PO SCH ×2 (09:00→20:47)
[2020-01-12] MEDS: HEPARIN SODIUM 5000UNIT/ML 1ML VIAL SQ SCH ×2 (09:01→20:53)
[2020-01-12] MEDS: IRON SUCROSE COMPLEX 100 MG in SODIUM CHLORIDE 0.9% 50 ML IV SCH (09:02)
[2020-01-12] MEDS ORDERED: INSULIN GLARGINE 100 UNITS/ML 10 ML VIAL SQ ONE (11:15)
[2020-01-12 12:12] VITALS: BP 148/90
[2020-01-12 16:20] VITALS: BP 144/84
[2020-01-12] MEDS ORDERED: INSULIN HUMULIN 70/30 100 UNIT/ML 3ML SQ SCH (16:30)
--- NOTE | 2020-01-12 19:35 | NUR ---
REPORT CALLED, PATIENT TAKEN VIA WHEELCHAIR TO ROOM 421
[2020-01-12 19:40] VITALS: BP 160/105
[2020-01-12] MEDS: PREGABALIN 25 MG CAP PO SCH ×2 (20:49→21:00)
[2020-01-12] MEDS ORDERED: PREGABALIN 75 MG CAPSULE PO SCH (21:00)
[2020-01-12 23:57] VITALS: BP 124/85
[2020-01-13 03:40] VITALS: BP 129/78
[2020-01-13] MEDS: IPRATROPIUM/ALBUTEROL SULFATE 3 ML SOLUTION IH SCH (05:16)
[2020-01-13 06:02] LABS: BASOPHILS % (AUTO) 0.2 % (0.0-5.0); EOSINOPHILS % (AUTO) 3.7 % (0.0-8.0); HEMATOCRIT 36.5 % (42-54); LYMPHOCYTES % (AUTO) 32.7 % (21.0-51.0); MEAN CORPUSCULAR HEMOGLOBIN 27.5 pg (27.0-33.0); MEAN CORPUSCULAR HGB CONC 31.2 g/dL (32.0-36.0); MEAN CORPUSCULAR VOLUME 88.2 fL (79-99); MONOCYTES % (AUTO) 5.5 % (3.0-13.0); NEUTROPHILS % (AUTO) 57.5 % (40.0-77.0); PLATELET COUNT (AUTO) 198 K/uL (130-400); RED BLOOD CELL COUNT(AUTO) 4.14 MIL/uL (4.50-6.20); RED CELL DISTRIBUTION WIDTH 12.4 % (11.0-15.5); WHITE BLOOD COUNT (AUTO) 4.9 K/uL (4.8-10.8)
[2020-01-13 06:14] LABS: MAGNESIUM 1.6 mg/dL (1.80-2.40); PHOSPHORUS 4.2 mg/dL (2.5-4.9); POTASSIUM 4.6 mmol/L (3.5-5.1)
[2020-01-13] MEDS: MAGNESIUM 2GM PREMIX 50ML 50 ML IV SCH (06:38)
[2020-01-13] MEDS: INSULIN HUMULIN R 100 UNIT/ML 3ML SQ SCH ×2 (06:44→11:30)
[2020-01-13] MEDS ORDERED: INSULIN HUMULIN 70/30 100 UNIT/ML 3ML SQ SCH (07:30)
--- NOTE | 2020-01-13 08:03 | NUR ---
Patient refused scheduled am insulin.Magnesium 2 Grams IV ongoing.Endorsed care to incoming NOD using SBAR all questions answered.
[2020-01-13 08:09] VITALS: BP 137/86
[2020-01-13] MEDS ORDERED: MAGNESIUM OXIDE 400 MG TABLET PO SCH (09:00)
[2020-01-13] MEDS: IRON SUCROSE COMPLEX 100 MG in SODIUM CHLORIDE 0.9% 50 ML IV SCH (09:00)
[2020-01-13] MEDS ORDERED: IPRATROPIUM/ALBUTEROL SULFATE 3 ML SOLUTION IH PRN (10:15)
[2020-01-13] MEDS: METOPROLOL SUCCINATE 50 MG TAB.SR.24H PO SCH (10:29)
[2020-01-13] MEDS: AMLODIPINE BESYLATE 5 MG TAB PO SCH (10:29)
[2020-01-13] MEDS: FUROSEMIDE 40 MG TABLET PO SCH (10:30)
[2020-01-13] MEDS: PREGABALIN 25 MG CAP PO SCH (10:30)
[2020-01-13] MEDS: FOLIC ACID/VITAMIN B COMP W-C 1 CAP TAB PO SCH (10:30)
[2020-01-13] MEDS: FAMOTIDINE 20MG TAB 20 MG TAB PO SCH (10:30)
[2020-01-13] MEDS: LISINOPRIL 20 MG TABLET PO SCH (10:30)
[2020-01-13] MEDS: HEPARIN SODIUM 5000UNIT/ML 1ML VIAL SQ SCH (10:32)
[2020-01-13] MEDS: AMOXICILLIN/POTASSIUM CLAV 875-125 TABLET PO SCH (10:42)
--- NOTE | 2020-01-13 10:50 | NUR ---
NUTRITION EDUCATION FOLLOW UP ANTHONY provided Diabetes nutrition education with reference materials and handouts. Pt shows no interest. ANTHONY encouraged Pt to notify as questions or concerns arise. Addendum: 01/13/20 at [address] RD Amended: Links added.
[2020-01-13 11:59] VITALS: BP 153/101
[2020-01-13] MEDS ORDERED: AMOX-429 PO (12:46)
--- NOTE | 2020-01-13 18:07 | NUR ---
Written and verbal d/c instructions provided to pt. re: antibiotic therapy/pneumonia, f/u appt., diabetic diet and education... Pt. verbalizes understanding of instructions as provided. Removed SL intact, no redness or swelling at site. No questions or complaints at this time.
--- NOTE | 2020-01-13 18:32 | NUR ---
Dc'd to self care via w/c without incident accompanied by staff and father.
== END 2020-01-13 18:38 | disposition home or self-care (01) | DRG 177 ==
LOC: EDH 17:28 → EDHIP 17:29 → 2DH 01-06 16:22 → 4DH 01-12 19:38
PROVIDERS: ADMIT Internal Medicine; ATTEND Internal Medicine
PROC: 0B9H8ZX Drainage of Lung Lingula, Via Natural or Artificial Opening Endoscopic, Diagnostic (ICD-10-PCS; principal; 2020-01-09)
PROC: 0B9D8ZX Drainage of Right Middle Lung Lobe, Via Natural or Artificial Opening Endoscopic, Diagnostic (ICD-10-PCS; 2020-01-09)
DX: J15.212 Pneumonia due to Methicillin resistant Staphylococcus aureus (principal); E43 Unspecified severe protein-calorie malnutrition; N17.9 Acute kidney failure, unspecified; I50.20 Unspecified systolic (congestive) heart failure; I13.0 Hypertensive heart and chronic kidney disease with heart failure and stage 1 through stage 4 chronic kidney disease, or unspecified chronic kidney disease; Z68.43 Body mass index [BMI] 50.0-59.9, adult; E11.22 Type 2 diabetes mellitus with diabetic chronic kidney disease; D53.0 Protein deficiency anemia; E78.5 Hyperlipidemia, unspecified; E11.42 Type 2 diabetes mellitus with diabetic polyneuropathy; E11.51 Type 2 diabetes mellitus with diabetic peripheral angiopathy without gangrene; E66.01 Morbid (severe) obesity due to excess calories; F79 Unspecified intellectual disabilities; I16.0 Hypertensive urgency; N18.9 Chronic kidney disease, unspecified; R09.02 Hypoxemia; Z79.4 Long term (current) use of insulin; Z83.3 Family history of diabetes mellitus; Z91.19 Patient's noncompliance with other medical treatment and regimen
CPT/HCPCS: 31622; 36415; 71045; 76770; 80048; 80053; 80061; 80076; 81001; 82040; 82140; 82550; 82570; 82728; 82948; 83036; 83540; 83550; 83605; 83690; 83735; 83880; 84100; 84145; 84156; 84300; 84484; 85025; 85610; 85730; 86038; 86140; 86215; 86235; 86255; 86592; 86701; 86705; 86738; 87040; 87071; 87077; 87116; 87186; 87205; 87206; 87340; 87390; 87449; 87520; 87804; 87899; 89051; 93005; 93306; 93970; 94640; 94664; A4606; G0378; J0330; J0360; J0456; J0696; J1644; J1756; J1815; J1940; J2175; J2704; J2920; J3370; J3475; J3490; J7030; J7070

== ENCOUNTER 2020-02-11 13:21 | Emergency (ER) | payer MEDICAID, OTHER ==
[~2020-02-11 13:21] MED LIST changes: +AMOX-429 PO
[2020-02-11] MEDS ORDERED: FUROSEMIDE 10 MG/ML 4ML VIAL ONE (13:57)
[2020-02-11 14:19] LABS: BASOPHILS % (AUTO) 0.3 % (0.0-5.0); HEMATOCRIT 33.8 % (42-54); LYMPHOCYTES % (AUTO) 24.6 % (21.0-51.0); MEAN CORPUSCULAR HEMOGLOBIN 27.7 pg (27.0-33.0); MEAN CORPUSCULAR HGB CONC 32.2 g/dL (32.0-36.0); MEAN CORPUSCULAR VOLUME 85.8 fL (79-99); MONOCYTES % (AUTO) 6.9 % (3.0-13.0); NEUTROPHILS % (AUTO) 65.9 % (40.0-77.0); PLATELET COUNT (AUTO) 141 K/uL (130-400); RED BLOOD CELL COUNT(AUTO) 3.94 MIL/uL (4.50-6.20); RED CELL DISTRIBUTION WIDTH 13.2 % (11.0-15.5); WHITE BLOOD COUNT (AUTO) 3.9 K/uL (4.8-10.8)
[2020-02-11 14:38] LABS: B-TYPE NATRIURETIC PEPTIDE 250 pg/mL (0-100); CREATININE 1.7 mg/dL (0.5-1.5)
[2020-02-11 14:39] LABS: ALBUMIN 2.2 g/dL (3.5-5.0); BILIRUBIN,TOTAL 0.3 mg/dL (0.2-1.0); POTASSIUM 4.7 mmol/L (3.5-5.1); TOTAL PROTEIN, SERUM 5.3 g/dL (6.0-8.3)
== END 2020-02-11 15:49 | disposition home or self-care (01) ==
LOC: EDH 13:21
DX: E87.70 Fluid overload, unspecified (principal); I12.0 Hypertensive chronic kidney disease with stage 5 chronic kidney disease or end stage renal disease; E11.22 Type 2 diabetes mellitus with diabetic chronic kidney disease; N18.6 End stage renal disease; E78.5 Hyperlipidemia, unspecified
CPT/HCPCS: 36415; 71046; 80053; 83880; 84484; 85025; 93005; 96374; 99285; J1940